=== PATIENT | male | born 1955 | race Two or more races ===

== ENCOUNTER 2018-03-07 18:55 | Emergency (ER) | payer OTHER ==
[2018-03-07] MEDS ORDERED: TDAP ADULT 0.5 ML INJ (BOOSTRIX) IM ONE (19:14)
--- NOTE | 2018-03-07 19:26 | EDPHY ---
H & P Time Seen by Provider: 03/07/18 18:59 HPI/ROS: This patient sustained a laceration to his right 5th finger palmar aspect proximal phalanx region with spurting blood and moderate pain while at work fixing a computer pressure. Injury occurred approximately 2 hr prior to arrival when he initially presented to an urgent care clinic where they were concerned he might have a tendon injury based on the depth of the wound and sent him here for evaluation and treatment after placing a bandage on the patient's wound. ROS: Constitutional: No complaints Integumentary: No other skin lacerations. Neuro: He denies any numbness or tingling. Cardiovascular: Reports"a lateral bleeding". Direct pressure alone did stop the bleeding but a pressure dressing applied at the urgent care has prevented blood from tripping from the hand. It has soaked the dressing. 5 point ROS is otherwise negative. Smoking Status: Current every day smoker Physical Exam: Physical Exam Vital signs are normal. General: No acute distress Eyes: Pupils equal and react to light. Extraocular motions are intact. Lungs: No respiratory distress. Cardiac: Brisk capillary refill is intact in the affected extremity. Skin: No rash or pallor. Extremities: Atraumatic normal except for right 5th finger Right 5th finger: Patient has a 2 cm full-thickness laceration to the palmar aspect of the 5th finger at the proximal phalanx region with spurting blood. Patient maintains 5/5 strength in finger flexion at both the PIP and the IP joints. Neuro: Alert and oriented with diminished light touch sensation to the ulnar aspect of the affected 5th finger distal phalanx on loss of 2 point discrimination in the ulnar aspect but retained 2 point discrimination in the radial aspect of the 5th finger. Initial differential diagnosis: Finger laceration, tendon laceration, arterial are wound with bleeding, digital sensory nerve injury with deficit A Theodore drain tourniquet is applied finger with further evaluation. The base of the wound is clearly visualize with a clean field with subcutaneous tissue evident but appreciate no evidence of tendon injury. Constitutional: Initial Vital Signs Temperature (C) 37.2 C 03/07/18 19:11 Heart Rate 98 03/07/18 19:11 Respiratory Rate 16 03/07/18 19:11 Blood Pressure 148/103 H 03/07/18 19:11 O2 Sat (%) 94 03/07/18 19:11 O2 Delivery Mode Room Air Allergies/Adverse Reactions: No Known Allergies Allergy (Unverified 03/07/18 19:10) Home Medications: Medication Instructions Recorded traMADol [Ultram 50 mg (*)] 50 - 100 mg PO Q4 PRN #10 tab 03/07/18 MDM/Departure - MDM Procedures: Digital block: After verbal consent, using a 50 50 mix of 0.5% Marcaine 2% plain lidocaine, 27 gauge needle, chlorhexidine scrub under sterile conditions- 3 injections were administered to the base of the affected finger, 8 mL with good effect. Patient tolerated this well. There were no complications. The wound is 2 cm in length described physical exam. The wound was copiously irrigated with saline. The wound was explored for foreign bodies and none were found. The wound was prepped and draped in the normal sterile fashion. The edges were reapproximated using 3 interrupted sutures using 4 0 Prolene and 6 running sutures with continued mild bleeding but no pulsatile bleeding. and cosmesis. The patient tolerated the procedure well. There were no complications. Tube gauze applied by our tech. The patient instructed elevate the finger. Medications Given: Discontinued Medications Diphtheria/Tetanus/Acell Pertussis (Boostrix) 0.5 ml IM .ONCE ONE Stop: 03/07/18 19:15 Last Admin: 03/07/18 19:24 Dose: 0.5 ml ED Course/Re-evaluation: Discussion: Patient with finger laceration with small arterial bleeder and partial digital nerve deficit ulnar aspect of finger. No other associated injuries are appreciated. - Depart Disposition: Home, Routine, Self-Care Clinical Impression: Injury of digital nerve of finger Qualifiers: Encounter type: initial encounter Qualified Code(s): S64.40XA - Injury of digital nerve of unspecified finger, initial encounter Condition: Good Instructions: Finger Laceration (ED) Additional Instructions: Diagnosis: Finger laceration 2. Digital nerve injury You have less sensation to the ulnar aspect of your small finger. This sometimes regenerates back to normal sensation over the course of weeks to months but occasionally is permanent. Plan: Keep the wound clean and dry for the next [address] dressing in [address]. Elevate the hand whenever possible apply ice to the affected finger this evening to help stop any ongoing bleeding. Ibuprofen and Tylenol for pain control. Tramadol in addition if needed. No driving, alcohol or come tramadol. No work for the next 2 days. Wound check at to work comp clinic and 2 days. Dressing removal at that time and anticipated clearance to return to work with limited use of affected finger. Sutures should be removed in 10-12 days. Return emergency department if you have any significant ongoing bleeding despite ice and elevation, develop redness, discharge or other concerns for infection. Referrals: NONE *PRIMARY CARE P,. [Primary Care Provider] - As per Instructions
[2018-03-07 20:21] VITALS: BP 140/88
== END 2018-03-07 20:14 | disposition home or self-care (01) ==
LOC: CED 18:55
PROC: 0HQFXZZ Repair Right Hand Skin, External Approach (ICD-10-PCS; principal; 2018-03-07)
DX: S64.496A Injury of digital nerve of right little finger, initial encounter (principal); F17.200 Nicotine dependence, unspecified, uncomplicated; Z23 Encounter for immunization; X58.XXXA Exposure to other specified factors, initial encounter; Y92.69 Other specified industrial and construction area as the place of occurrence of the external cause; Y99.0 Civilian activity done for income or pay; Y93.89 Activity, other specified
CPT/HCPCS: L3925